=== PATIENT | female | born 1935 | race Caucasian/White ===

== ENCOUNTER 2016-03-12 10:30 | Outpatient (RCR) | payer MEDICARE, OTHER, SELFPAY ==
--- NOTE | 2016-06-26 14:41 | HP.PTEVAL_ITS ---
Patient's Visit Information KAMERON BOCANEGRA is a 81 year old F referred to Physical Therapy by Vinod Knight with a diagnosis of MID CERVICAL DISC DISPLACEMENT. Date of Evaluation: 06/26/16 Physical Therapist: Monica Duong - Visit Plan Frequency: 2-3x /Week Duration: 4-6 Weeks Plan: POSTURAL STRENGTHEING AND HEP INST - Subjective Subjective: THIS PATIENT REPORTS SHE WANTS TO COME BACK TO PT BECAUSE SHE STILL THINKS HER HEAD IS TOO FAR FORWARD. SHE STATES THAT SHE AND DR. CONNOR BOTH FEEL LIKE THERAPY REALLY HELPED IN THE PAST AND THEY BOTH WANT HER TO HAVE MORE PT. SHE REPORTS SHE HAS BEEN TOLD HER HEAD WILL NEVER GO BACK TO WHERE IT WAS BUT EX MIGHT HELP KEEP IT FROM GETTING WORSE. EX: SHE REPORTS SHE WAS ABLE TO KEEP UP WITH THE EX'S WE TAUGHT HER UNTIL ABOUT A MONTH AGO BUT NOT FOR ABOUT A MONTH NOW. THIS PATIENT PRESENTS TO PT WITH C/O DIFFICULTY TO HOLD HER HEAD UP. SHE REPORTS HER WHOLE BACK HURT HER FOR TWO DAYS LAST WEEK AFTER HAVING A SLEEP STUDY. THE PAIN RADIATED UP INTO HER NECK BUT THAT PAIN IS GONE AND IN GENERAL SHE HAS NOT BEEN HAVING ANY NECK PAIN. PATIENT DENIES EXTREMITY PAIN, NUMBNESS AND TINGLINIG. SHE REPORTS SHE HAS BEEN STRUGGLING WITH HOLDING HER HEAD UP FOR YEARS. SHE REPORTS SHE WAS RAISED WITH GOING TO CHIROPRACTORS AND SHE FINALLY REALIZED THE CHIROPRACTOR (AND DO MANIPULATIONS AND MASSAGE) WERE NOT HELPING HER. SHE IS GOING TO REFLEXOLOGY AND PATIENT REPORTS THAT HELPS WITH HER ROM BUT NOT FORWARD HEAD. SHE HAS NEVER TRIED PT AND SHE HAS NOT HAD NECK SURGERY. IMAGIN NECK X-RAY AND 2016 - AGE RELATED ARTHRITIS. PATIENT REPORTS DR. CONNOR DIDN'T MENTION ANYTHING ABOUT HER DISCS. PATIENT REPORTS SHE ATTRIBUTES A LOT OF HER NECK PROBLEMS TO USING A FORWARD HEAD POSTURE TO SEE BECAUSE OF VISION PROBLEMS. VISION PROBLEMS RECENTLY CORRECTED WITH CATARACT SURGERY. PATIENT REPORTS SHE [facility] AND SHE GOES TO EX EVERYDAY WHICH HAS HELPED HER SHOULDER A LOT. PMH: RIGHT UNREPAIRED TORN ROTATOR CUFF, HTN, HEART STENT PLACEMENT 2010. OTHER: SHE GETS THE RESULTS OF HER SLEEP STUDY SOON. SHE HAS BEEN USING A CPAP MACHINE SINCE ABOUT 2006. STOPPED DRIVING IN FEBRUARY 2016. [ End ] - Objective THIS PATIENT AMBULATES INDEP'LY INTO PT WITHOUT ANY ASSISTIVE DEVICES AND AN EXTREME FORWARD HEAD POSTURE. HER SITTING POSTURE IS POOR. SHE DOES NOT HAVE ANY TORTICOLLIS. PRESTON UE LIGHT TOUCH SENSATION IS INTACT AND SYMMETRICAL. PRESTON UE ROM AND STRENGTH IS WFL. SHE HAS FULL CERVICAL FLEXION AND PROTRACTION AND IS ACTUALLY FIXED IN A FORWARD HEAD POSTURE. SHE HAS MAJOR CERVICAL MVMT LOSS INTO ALL OTHER PLANES. ALTHOUGH SHE HAS A HISTORY OF RIGHT ROTATOR CUFF TEAR HER RIGHT UE IS NOW QUITE FUNCTIONAL. SHE IS VERY TIGHT IN HER CERVICAL AND THORACIC MUSCULATURE. SHE HAS DECREASED KNOWLEDGE OF PROPER POSTURE CONTROL. POOR POSTURAL AND CORE STRENGTH. CERVICAL MEASUREMENTS: EXT - 5.5, RIGHT ROT - 7, LEFT ROT - 7.5, RIGHT SB - 6, LEFT 5.5. [ End ] - Goals Goal 1:: IMPROVE POSTURAL STRENGTH AND ROM Goal Time Frame: 4-6 Weeks Goal 2:: INDEP HEP Goal Time Frame: 4-6 Weeks - Rehabilitation Potential Rehabilitation Potential: Fair - Anticipated Interventions Patient/Client Instruction: Educate patient on: Condition, Plan of Care, Risk Factors, Benefits of Fitness Program For the Purpose of:: To improve self management Therapeutic Exercise to Include: Strength training, Postural training, Flexibilty training, Active ROM, Scapular Strength/Stabilization For the Purpose of:: To improve ability of physical actions for home/community/ work/leisure Thank you for the opportunity to evaluate your patient. For Medicare and Medicare HMO plans, please review the plan of care and approve it. It will need to be FAXED BACK to us at [phone] for Medicare purposes. Please let me know if there are questions or concerns regarding this plan of care. Physician Signature: Date:
--- NOTE | 2016-08-02 11:15 | HP.PTDCSUM ---
HP - PT D/C Summary It has been my pleasure to treat KAMERON BOCANEGRA under orders from Vinod Knight, for the diagnosis of MID CERVICAL DISC DISPLACEMENT for a total of 10 visit(s). Discharge Date: Please see the following information for a summary of their discharge status. - Subjective Subjective: PATIENT REPORTS SHE IS DOING BETTER AND DOESN'T HAVE ANY PAIN TODAY. SHE REPORTS IT IS REALLY NICE TO COME HERE. PATEINT REPORTS SHE WENT TO HEAR A SPEAKER YESTERDAY AND SHE TURNED HER HEAD TO LISTEN FOR A PROLONGED PERIOD OF TIME. HAD TO TURN HER CHAIR. PATIENT REPORTS SHE THINKS SHE DID FINE WITH THE THERAPY BUT SHE IS REALIZING HER LIMITATIONS WILL PROBABLY CONTINUE TO GET WORSE WITH TIME. SHE IS DISCOURAGED BECAUSE DESPITE OUR BEST EFFORTS AND HERS SHE CAN'T HOLD HER HEAD UP LIKE SHE WANTS TO. - Pain Neck Pain Intensity (Out of 10): 0 - Overall Improvement % Improvement: 0 - Objective Objective/Function: INDEP HEP. PATIENT NOT PROGRESSING. PATIENT IS APPROPRIATE FOR PHYSICIAN FOLLOW UP WITH DR. SAUNDERS. UPON EXAM THERE ARE NO SIGNIFICANT CHANGES COMPARED TO HER INITIAL PT EVALUATION. - Goals Goal 1:: IMPROVE POSTURAL STRENGTH AND ROM Goal Progress: Not Progressing Goal 2:: INDEP HEP Goal Progress: Goal Met - Plan Plan: D/C DUE TO LACK OF PROGRESS - D/C Information If there are questions or concerns regarding this patient's physical therapy, please feel free to call me at [phone]. Thank you for the referral of this patient. Sincerely, Monica Duong
== END 2016-08-02 19:00 | disposition home or self-care (01) ==
LOC: PT 13:00
PROVIDERS: Family Provider Family Medicine; PCP Family Medicine; Visit Provider Orthopaedic Surgery
DX: M00-M99 Diseases of the musculoskeletal system and connective tissue (principal)
CPT/HCPCS: 97001; 97110; 97530; G8978; G8979; G8980

== ENCOUNTER → 2017-09-12 09:18 | Outpatient (CLI) | payer MEDICARE, OTHER, SELFPAY ==
[2017-09-05 09:33] LABS: BUN 30 mg/dL (7-18); Creatinine, Serum 1.32 mg/dL (0.55-1.02); EST Glomerular Filtration Rate 41 mL/min (>60); Est Glom Filt Rate - Afr Amer 50 mL/min (>60)
--- NOTE | 2017-09-12 09:22 | RDU_ITS ---
Reason For Study: Renal artery stenosis Right Renal Artery Left Renal Artery Right renal artery ostium Left renal artery ostium 338.0/55.0 521.0/83.1 RSV/EDV. PSV/EDV. Right renal artery proximal Left renal artery proximal PSV/EDV 209.0/33.0 PSV/EDV. 295.0/53.0 . Right renal artery mid 178.0/30.6 Left renal artery mid 202.0/29.3 PSV/EDV. PSV/EDV . Right renal artery distal Left renal artery distal 136.0/30.1 176.0/35.1 PSV/EDV. PSV/EDV. Right RAR 5.7. Left RAR 3.7. Right Renal Parenchyma Left Renal Parenchyma Upper Pole Medula 26.0/7.3 PSV/EDV. Left upper pole medulla 26.3/7.0 Right upper pole medulla EDR .28 . PSV/EDV . Right upper pole medulla R.I. .72 . Left upper pole medulla EDR .27 . Upper [place] Cortx 17.4/5.5 PSV/EDV. Left upper pole medulla R.I. .73 . Right upper pole cortex EDR .32 . UP Cortex 16.5/4.6 PSV/EDV. Right upper pole cortex R.I. .68 . Left upper pole cortex EDR .28 . Right lower Pole medulla 22.0/7.0 Left upper pole cortex R.I. .72 . PSV/EDV . Left lower Pole medulla 24.4/6.7 Right lower pole medulla EDR .32 . PSV/EDV . Right lower pole medulla R.I. .68 . Left lower pole medulla EDR .27 . Lower Pole Cortex 9.4/4.1 PSV/EDV. Left lower pole medulla R.I. .72 . Right lower pole cortex EDR .44 . Lower Pole Cortx 15.6/5.2 PSV/EDV. Right lower pole cortex R.I. .57 . Left lower pole cortex EDR .33 . Right Renal Hilar Left lower pole cortex R.I. .67 . Right Hilar avg 31.2/7.9 PSV/EDV. Left Renal Hilar Right hilar acceleration time 132.0 LT Hilar avg 44.9/10.1 PSV/EDV . m/sec. Left hilar acceleration time 117 Right Renal Dimensions m/sec. Right kidney size 10.1 cm . Left Renal Dimensions Right cortical dimension 1.5 cm . Left kidney size 9.0 cm . Left cortical dimension 1.5 cm . Aorta Proximal abdominal aorta 1.6 x 1.5 cm . Distal abdominal aorta 1.5 x 1.4 cm . Proximal abdominal aorta peak systolic velocity is 91.2 cm/sec . Distal abdominal aorta peak systolic velocity is 116.0 cm/sec . Interpretation Summary 1. Bilateral renal artery stenosis >60%. Ordering Physician: Axel Donis Referring Physician: Jennifer Gomez M.D. Performed By: Winnie Whipple RVT
== END ==
PROVIDERS: Family Provider Family Medicine; PCP Family Medicine; Visit Provider Surgery Vascular Surgery
DX: I70.1 Atherosclerosis of renal artery (principal); I65.23 Occlusion and stenosis of bilateral carotid arteries; R09.89 Other specified symptoms and signs involving the circulatory and respiratory systems; I25.10 Atherosclerotic heart disease of native coronary artery without angina pectoris; M79.605 Pain in left leg; M79.604 Pain in right leg; I10 Essential (primary) hypertension; E78.00 Pure hypercholesterolemia, unspecified; E07.9 Disorder of thyroid, unspecified
CPT/HCPCS: 36415; 82565; 84520; 93975

== ENCOUNTER → 2017-11-18 10:28 | Outpatient (CLI) | payer MEDICARE, OTHER, SELFPAY ==
[2017-11-18 12:25] LABS: AST(SGOT) 17 U/L (15-37); Alanine Aminotransfer ALT/SGPT 16 U/L (13-56); Albumin, Serum 3.7 g/dL (3.2-5.0); Alkaline Phosphatase 71 U/L (45-117); Bilirubin, Direct 0.11 mg/dL (0.00-0.30); Cholesterol 149 mg/dL (200); Globulin 3.7 g/dL (2.2-4.2); High Density Lipoprotein 48 mg/dL; Protein, Total 7.4 g/dL (6.4-8.2); Triglycerides 142 mg/dL; Very Low Density Lipoprotein 28 mg/dL (5-40)
== END ==
PROVIDERS: Family Provider Family Medicine; PCP Family Medicine; Visit Provider Nurse Practitioner Family
DX: E78.5 Hyperlipidemia, unspecified (principal); Z79.899 Other long term (current) drug therapy
CPT/HCPCS: 36415; 80061; 80076

== ENCOUNTER → 2018-01-27 07:36 | Outpatient (CLI) | payer MEDICARE, OTHER, SELFPAY ==
--- NOTE | 2018-01-27 07:37 | ECHOD_ITS ---
Reason For Study: Valve replacement eval Procedure This was a 2D Doppler, Color Flow transthoracic echocardiogram. Exam performed in department. Left Ventricle Normal size and thickness. The estimated ejection fraction is 75 %. Stage 2 diastolic dysfunction. No regional wall motion abnormalities noted. Right Ventricle Moderately dilated right ventricle. Normal systolic function. Atria Normal left atrium. Normal right atrium. Normal atrial septum. Mitral Valve The mitral valve is structurally normal. No prolapse or stenosis seen. Mild (1+) mitral valve insufficiency. Tricuspid Valve Normal tricuspid valve. Mild (1+) tricuspid valve insufficiency. Right ventricular systolic pressure estimated to be 41 mmHg. Mild pulmonary hypertension. Aortic Valve Trisinus/trileaflet aortic valve. Severe focal aortic valve thickening. Mild diffuse aortic valve calcification. Severe restriction of the aortic valve. Severe aortic stenosis. Peak aortic valve gradient 78 mmHg. Mean aortic valve gradient 37 mmHg. Calculated aortic valve area (continuity equation) is 0.72 cm2. Mild (1+) aortic valve insufficiency. Pulmonic Valve Normal pulmonic valve. Trivial eccentric pulmonic valve insufficiency. Great Vessels Normal aortic root. Mild atherosclerosis of the aortic arch. The inferior vena cava is dilated. Inferior vena cava collapse with sniff. Pericardium/Pleural No pericardial effusion. MMode/2D Measurements & Calculations LVIDd: 3.8 cm IVSd: 1.2 cm LVOT diam: 2.0 cm LVIDs: 1.7 cm LVPWd: 1.1 cm LVOT area: 3.2 cm2 RVDd: 4.2 cm FS: 53.5 % Ao root diam: 3.3 cm LAV(MOD-sp4): 48.6 ml LA A4 area: 18.3 cm2 ACS: 0.30 cm RA A4 area: 15.2 cm2 Time Measurements MV dec time: 0.19 sec Doppler Measurements & Calculations MV E max alondra: 104.2 cm/sec MV V2 max: 132.3 cm/sec Ao V2 max: 439.3 cm/sec MV A max alondra: 83.1 cm/sec MV max P.0 mmHg Ao max P.7 mmHg MV E/A: 1.3 MV V2 mean: 60.7 cm/sec Ao V2 mean: 276.0 cm/sec MV mean P.9 mmHg Ao mean P.6 mmHg MV V2 VTI: 36.1 cm Ao V2 VTI: 111.9 cm MVA(VTI): 2.6 cm2 NABOR(I,D): 0.83 cm2 NABOR(V,D): 0.72 cm2 AI max alondra: 364.4 cm/sec LV V1 max: 99.7 cm/sec SV(LVOT): 93.4 ml AI max P.1 mmHg LV V1 max P.0 mmHg AI dec slope: 222.5 cm/sec2 LV V1 mean P.3 mmHg AI P1/2t: 479.6 msec LV V1 mean: 71.9 cm/sec LV V1 VTI: 29.6 cm PA V2 max: 74.0 cm/sec TR max alondra: 280.0 cm/sec TR max P.5 mmHg Interpretation Summary The estimated ejection fraction is 75 %. Stage 2 diastolic dysfunction. Moderately dilated right ventricle. Mild (1+) mitral valve insufficiency. Mild (1+) tricuspid valve insufficiency. Right ventricular systolic pressure estimated to be 41 mmHg. Mild pulmonary hypertension. Mild (1+) aortic valve insufficiency. Severe aortic stenosis. Peak aortic valve gradient 78 mmHg. Mean aortic valve gradient 37 mmHg. Calculated aortic valve area (continuity equation) is 0.72 cm2. Compared to echo report dated 06/28/2015, LV function has remained the same, and aortic stenosis has gone from mild/moderate to severe. RVSP has increased from 34 to 41 mm Hg. Ordering Physician: Chao Martinez Referring Physician: Chao Martinez Performed By: Magdiel Crespo RCS
== END ==
PROVIDERS: Family Provider Family Medicine; PCP Family Medicine; Visit Provider Internal Medicine Cardiovascular Disease
DX: I25.10 Atherosclerotic heart disease of native coronary artery without angina pectoris (principal)
CPT/HCPCS: 93306

== ENCOUNTER → 2018-03-03 12:13 | Outpatient (CLI) | payer MEDICARE, OTHER, SELFPAY ==
[2018-03-03 14:28] LABS: Absolute Lymphocyte Count 1.39 X10^3/ul (0.83-4.51); Basophil# 0.05 X10^3/uL; Basophil% 1.1 % (0-1); Eosinophil# 0.41 X10^3/uL; Eosinophils% 9.3 % (0-5); Hemoglobin 10.7 g/dl (12.0-15.0); Lymphocyte # 1.39 X10^3/ul (4.0); Lymphocyte % 31.7 % (19-41); Mean Corp Hgb Conc 32.4 g/gl (32-36); Mean Corpuscular Hgb 28.5 pg (27.0-32.0); Mean Platelet Vol. 10.4 fl (6.2-12.0); Monocyte# 0.54 X10^3/uL; Monocyte% 12.3 % (0-10); Neutrophil # 1.99 X10^3/uL (2.7-7.7); Neutrophil % 45.4 % (47-70); Platelet Count 210 K/mm3 (150-450); RBC Distribution Width SD 40.5 fl (35.1-43.9); Red Blood Count 3.75 M/mm3 (4.2-5.4); White Blood Count 4.4 K/mm3 (4.4-11.0)
[2018-03-03 14:33] LABS: POSITIVE COUNT NO; POSITIVE DIFFERENTIAL NO; POSITIVE MORPHOLOGY NO
[2018-03-03 15:00] LABS: AST(SGOT) 17 U/L (15-37); Alanine Aminotransfer ALT/SGPT 22 U/L (13-56); Albumin, Serum 3.7 g/dL (3.2-5.0); Alkaline Phosphatase 55 U/L (45-117); Anion Gap 8 (5-15); BUN 38 mg/dL (7-18); BUN/Creat Ratio 23.5 RATIO (10-20); Calcium,Total 8.9 mg/dL (8.5-10.1); Chloride 105 mmol/L (98-107); Creatinine, Serum 1.62 mg/dL (0.55-1.02); EST Glomerular Filtration Rate 32 mL/min (>60); Est Glom Filt Rate - Afr Amer 39 mL/min (>60); Globulin 3.6 g/dL (2.2-4.2); Glucose 104 mg/dL (74-106); Protein, Total 7.3 g/dL (6.4-8.2); Sodium Level 141 mmol/L (136-145); T4 Total, Thyroxin 13.9 ug/dL (4.8-13.9); Thyroid Stim Hormone (TSH) 0.25 uIU/mL (0.358-3.74)
== END ==
PROVIDERS: Family Provider Family Medicine; PCP Family Medicine; Visit Provider Family Medicine
DX: E03.9 Hypothyroidism, unspecified (principal); R41.3 Other amnesia
CPT/HCPCS: 36415; 80053; 84436; 84443; 85025

== ENCOUNTER → 2018-04-14 10:51 | Outpatient (CLI) | payer MEDICARE, OTHER, SELFPAY ==
[2018-04-14 12:53] LABS: AST(SGOT) 16 U/L (15-37); Alanine Aminotransfer ALT/SGPT 20 U/L (13-56); Cholesterol 181 mg/dL (200); High Density Lipoprotein 59 mg/dL; Triglycerides 145 mg/dL; Very Low Density Lipoprotein 29 mg/dL (5-40)
== END ==
PROVIDERS: Family Provider Family Medicine; PCP Family Medicine; Visit Provider Family Medicine
DX: E78.5 Hyperlipidemia, unspecified (principal)
CPT/HCPCS: 36415; 80061; 84450; 84460

== ENCOUNTER → 2018-10-20 10:01 | Outpatient (CLI) | payer MEDICARE, OTHER, SELFPAY ==
[2018-02-16 13:25] VITALS: BMI 20.8
[2018-10-20 13:39] LABS: Anion Gap 9 (5-15); BUN 27 mg/dL (7-18); BUN/Creat Ratio 18.4 RATIO (10-20); Chloride 107 mmol/L (98-107); Creatinine, Serum 1.47 mg/dL (0.55-1.02); EST Glomerular Filtration Rate 36 mL/min (>60); Est Glom Filt Rate - Afr Amer 44 mL/min (>60); Glucose 98 mg/dL (74-106); Potassium 4.3 mmol/L (3.5-5.1); Sodium Level 142 mmol/L (136-145); T4 Total, Thyroxin 13.3 ug/dL (4.8-13.9)
== END ==
PROVIDERS: Family Provider Family Medicine; PCP Family Medicine; Referring Provider Family Medicine; Visit Provider Family Medicine
DX: I10 Essential (primary) hypertension (principal); E03.9 Hypothyroidism, unspecified
CPT/HCPCS: 36415; 80048; 84436; 84443

== ENCOUNTER → 2018-12-17 10:12 | Outpatient (CLI) | payer MEDICARE, OTHER, SELFPAY ==
[2018-02-16 13:25] VITALS: BMI 20.8
[2018-12-17 13:02] LABS: Anion Gap 6 (5-15); BUN 34 mg/dL (7-18); BUN/Creat Ratio 20.7 RATIO (10-20); Calcium,Total 8.8 mg/dL (8.5-10.1); Chloride 109 mmol/L (98-107); Creatinine, Serum 1.64 mg/dL (0.55-1.02); EST Glomerular Filtration Rate 32 mL/min (>60); Est Glom Filt Rate - Afr Amer 38 mL/min (>60); Glucose 163 mg/dL (74-106); Potassium 3.9 mmol/L (3.5-5.1); Sodium Level 141 mmol/L (136-145); T4 Total, Thyroxin 14.6 ug/dL (4.8-13.9); Thyroid Stim Hormone (TSH) 0.65 uIU/mL (0.358-3.74)
== END ==
PROVIDERS: Family Provider Family Medicine; PCP Family Medicine; Referring Provider Family Medicine; Visit Provider Family Medicine
DX: I10 Essential (primary) hypertension (principal); E03.9 Hypothyroidism, unspecified
CPT/HCPCS: 36415; 80048; 84436; 84443

== ENCOUNTER → 2019-04-12 10:20 | Outpatient (CLI) | payer MEDICARE, OTHER, SELFPAY ==
[2018-02-16 13:25] VITALS: BMI 20.8
[2019-04-12 12:39] LABS: AST(SGOT) 13 U/L (15-37); Alanine Aminotransfer ALT/SGPT 18 U/L (13-56); Anion Gap 7 (5-15); BUN 33 mg/dL (7-18); BUN/Creat Ratio 17.9 RATIO (10-20); Chloride 106 mmol/L (98-107); Cholesterol 164 mg/dL (200); Creatinine, Serum 1.84 mg/dL (0.55-1.02); EST Glomerular Filtration Rate 28 mL/min (>60); Est Glom Filt Rate - Afr Amer 34 mL/min (>60); Glucose 113 mg/dL (74-106); High Density Lipoprotein 55 mg/dL; Potassium 4.3 mmol/L (3.5-5.1); Sodium Level 138 mmol/L (136-145); Triglycerides 118 mg/dL; Very Low Density Lipoprotein 24 mg/dL (5-40)
== END ==
PROVIDERS: Family Provider Family Medicine; PCP Family Medicine; Visit Provider Family Medicine
DX: I10 Essential (primary) hypertension (principal)
CPT/HCPCS: 36415; 80048; 80061; 84450; 84460

== ENCOUNTER 2019-10-14 17:01 | Inpatient (IN) | payer MEDICARE, OTHER, SELFPAY ==
[2019-10-14] VITALS (7 sets, daily range): BP systolic 132–161; BP diastolic 34–56; PULSE 50–73; RESP 16–24; TEMP 36.3–36.6; O2SAT 91–96; BMI 21.7; BMI 21.2; BMI 21.3
--- NOTE | 2019-10-14 17:21 | EKG12_ITS ---
Test Reason : Blood Pressure : / mmHG Vent. Rate : 070 BPM Atrial Rate : 250 BPM P-R Int : 000 ms QRS Dur : 082 ms QT Int : 400 ms P-R-T Axes : 000 -11 058 degrees QTc Int : 432 ms Atrial fibrillation Abnormal ECG Confirmed by ALFREDO OWENS ([id number]), rewrite editor RICHARD NGUYEN ([id number]) on 10/18/2019 11:00:16 AM Referred By: AGAPITO Confirmed By:ALFREDO OWENS
--- NOTE | 2019-10-14 17:28 | ED.DCSUM_ITS ---
- ER Visit Summary Date of Service: 10/14/19 Chief Complaint: Shortness of breath History of Present Illness: The patient is a 84 F who presents with shortness of breath that began yesterday. Patient states it began rather suddenly last evening. Patient states that is been constant throughout the night. Patient admits to subjective fever. Patient admits to some myalgias with the fever. Patient also admits to rhinorrhea. Patient denies any sore throat or ear pain. Patient denies any cough. Patient denies any sick contacts. Patient lives in assisted living where they were not letting anybody in or out. Patient denies any chest pain. Patient denies any lower extremity edema. Physical Examination: Vital signs are stable except for mild tachypnea of 24. Patient is afebrile. Patient is in no acute distress. Oral mucosa is pink and moist. Neck is supple. Trachea is midline. There is no JVD. Heart was regular rate and rhythm. Lungs show rales in the left base. There is good respiratory effort. Abdomen is soft. Bowel sounds are normal. There is no tenderness. Cranial nerves II through XII are intact. There are no focal motor or sensory deficits noted peer extremities are intact. There is no calf tenderness or edema. Test Results: CBC showed a mild anemia with hemoglobin of 9.2 hematocrit 28.3. BUN and creatinine were elevated at 38 and 1.78 which is consistent with prior results. EKG showed atrial fibrillation with a rate of 70. There are no acute ST or T wave changes. This was unchanged compared to previous EKG dated 09/26/2016. Troponin was slightly elevated at 0.14. Influenza swab was negative. PA and lateral chest x-ray was obtained. There is atelectasis and effusion in the left base. There is also questionable infiltrate in the left base. This was interpreted by the radiologist and reviewed by myself. Emergency Department Course and Treatment: Patient was started on Levaquin. Patient's son who is the power of attorney general stated that he is agreeable to admitting the patient to the hospital for pneumonia but does not want any further testing on her heart or any further treatment on her heart. Case was discussed with the hospitalist. He will admit the patient to the hospital. Patient and family understand and are agreeable with the plan. All questions were answered. Disposition: Admit to hospital Impression: 1. Pneumonia 2. Elevated troponin This note was generated with [employer] dictation software. It may contain incorrect words, spelling, and punctuation that were not noted in review of the chart pr ior to signing ED Disposition - Plan for ED Patient: Disposition: Acute Care Hospital [facility] Diagnosis: Pneumonia, Elevated troponin Referrals: Jennifer Gomez MD [Primary Care Provider] -
--- NOTE | 2019-10-14 17:50 | RAD_ITS ---
STUDY: X-RAY CHEST REASON FOR EXAM: Female, 84 years old. SOB STARTING LAST NIGHT WITH A FEVER TECHNIQUE: PA and lateral views of the chest. COMPARISON: 05/07/2011 FINDINGS: Cardiac silhouette unremarkable. Pulmonary vascularity unremarkable. Aorta atherosclerotic. There is a small left basilar opacity. Upper abdomen unremarkable. Osseous structures intact. No pneumothorax. RAD/Chest PA and Lateral IMPRESSION: [id number] left basilar opacity likely represents atelectasis and effusion. Pneumonia should be excluded clinically. Electronically Signed: Rao Blackwood, at 18:27 EDT Tel , Service support ,
[2019-10-14 18:02] LABS: Absolute Lymphocyte Count 1.28 X10^3/uL (0.83-4.51); Absolute Neutrophil Count 3.1 X10^3/uL (2.0-7.7); Basophil# 0.05 X10^3/uL; Basophil% 0.9 % (0-1); Eosinophil# 0.14 X10^3/uL; Eosinophils% 2.6 % (0-5); Hematocrit 28.3 % (37-47); Hemoglobin 9.2 g/dL (12.0-15.0); Lymphocyte # 1.28 X10^3/ul (4.0); Lymphocyte % 23.4 % (19-41); Mean Corp Hgb Conc 32.5 g/dL (32-36); Mean Corpuscular Hgb 28.8 pg (27.0-32.0); Mean Corpuscular Volume 88.4 fL (81-99); Mean Platelet Vol. 10.1 fl (6.2-12.0); Monocyte# 0.93 X10^3/uL; NRBC Flagged by Analyzer 0 % (0-5); Neutrophil # 3.05 X10^3/uL (2.7-7.7); Neutrophil % 55.7 % (47-70); Platelet Count 196 K/mm3 (150-450); RBC Distribution Width CV 12.5 % (11.6-14.6); RBC Distribution Width SD 40.3 fl (35.1-43.9); White Blood Count 5.5 K/mm3 (4.4-11.0)
[2019-10-14 18:21] LABS: Anion Gap 7 (5-15); BUN 38 mg/dL (7-18); BUN/Creat Ratio 21.3 RATIO (10-20); Calcium,Total 8.4 mg/dL (8.5-10.1); Chloride 106 mmol/L (98-107); Creatinine, Serum 1.78 mg/dL (0.55-1.02); EST Glomerular Filtration Rate 29 mL/min (>60); Est Glom Filt Rate - Afr Amer 35 mL/min (>60); Estimated Creatinine Clearance 19.46 ml/min; Glucose 106 mg/dL (74-106); Potassium 4.4 mmol/L (3.5-5.1); Sodium Level 137 mmol/L (136-145)
[2019-10-14 18:28] LABS: Lactic Acid 0.7 mmol/L (0.4-1.9)
--- NOTE | 2019-10-14 19:41 | HP.PCM_ITS ---
Problem List (1) Pneumonia Status: Acute (2) Elevated troponin Status: Acute (3) History of coronary artery stent placement Status: Chronic Comment: [id number] LAD w/ Promus 3.0 x 15 mm (4) Hyperlipidemia Status: Chronic (5) Hypertension Status: Chronic (6) Atherosclerosis of coronary artery of [place] heart without angina pectoris Status: Chronic (7) Non-rheumatic aortic stenosis Status: Chronic (8) Left carotid artery stenosis Status: Chronic History of Present Illness Date of Admission: 10/14/19 Chief Complaint: sob The patient is a 84 year old F with a significant history of hypertension; hyperlipidemia; chronic A. fib; CAD status post stent who presents at the emergency department with shortness of breath that started a day before presentation. Her SOB started while patient was at rest. Patient lives at an assisted nursing facility where at this time of COV - pandemic no one is allowed to leave or come into the facility. Also reportedly the patient had a low-grade fever and was given Tylenol at assisted nursing facility. Further patient had a cough. Chest x-ray at emergency department showed small to moderate left basal opacity likely representing atelectasis and effusion. Past Medical History Past Medical History (Chronic Problems): Chronic Problems (Last Reviewed 10/15/19 @ 00:[address] Wilfredo Wisdom MD) History of coronary artery stent placement (Chronic 05/09/11) [id number] LAD w/ Promus 3.0 x 15 mm Hyperlipidemia (Chronic) Hypertension (Chronic) Atherosclerosis of coronary artery of [place] heart without angina pectoris (Chronic) Non-rheumatic aortic stenosis (Chronic) Left carotid artery stenosis (Chronic) Medical History: Medical History (Last Reviewed 10/15/19 @ 01:[address] Wilfredo Wisdom MD) Hyperlipidemia (Chronic) E78.5 Hypertension (Chronic) I10 Atherosclerosis of coronary artery of [place] heart without angina pectoris (Chronic) I25.10 Non-rheumatic aortic stenosis (Chronic) I35.0 Left carotid artery stenosis (Chronic) I65.22 Asystole (Resolved) I46.9 Allergies ropinirole Allergy (Verified 02/16/18 13:24) HALLUCINATIONS donepezil [From Namzaric] Adverse Reaction (Verified 02/16/18 13:24) asystole memantine [From Namzaric] Adverse Reaction (Verified 02/16/18 13:24) asystole tetracycline Adverse Reaction (Verified 02/16/18 13:24) DIZZINESS Home Medications: Ambulatory Orders Medication Instructions Recorded Levothyroxine [Synthroid] 100 mcg PO DAILY 09/26/16 pramipexole 0.125 mg tablet 0.125 mg PO QHS 12/09/17 nitroglycerin 0.4 mg sublingual 0.4 mg SUBLINGUAL PRN PRN #25 tab 01/23/18 tablet aspirin 81 mg chewable tablet 81 mg PO .QOD tab 02/02/18 simvastatin 20 mg tablet 20 mg PO QHS #90 tab 02/25/19 amlodipine 5 mg tablet 5 mg PO BID #180 tab 03/01/19 carvedilol 6.25 mg tablet 6.25 mg PO BID #180 tab 03/29/19 hydrochlorothiazide 25 mg tablet 25 mg PO DAILY #90 tab 03/29/19 losartan 100 mg tablet 100 mg PO DAILY #90 tab 03/29/19 clopidogrel 75 mg tablet 75 mg PO DAILY #90 tab 08/30/19 Doxazosin Mesylate See Rx Instructions PO DAILY 10/14/19 Surgical History: Surgical History (Last Reviewed 10/15/19 @ 00:[address] Wilfredo Wisdom MD) History of coronary artery stent placement (Chronic) Onset Date: 05/09/11 Z95.5 [id number] LAD w/ Promus 3.0 x 15 mm History of hysterectomy Z90.710 Lives: [facility] Smoking Status: Former smoker - *Family History Paternal Family History: Family History (Last Reviewed 10/15/19 @ 01:[address] Wilfredo Wisdom MD) Brother CAD (coronary artery disease) Breast cancer Sister Hypertension Mother Breast cancer Review of Systems Constitutional: Reports: Fever. Denies: Chills, Weight Change HEENT: Denies: Head Aches, Sinus Congestion, Sinus Drainage Cardiovascular: Denies: Chest Pain, Palpitations Respiratory: Reports: Cough, Shortness of Breath Gastrointestinal: Denies: Abdominal Pain, Nausea, Vomiting Genitourinary: Denies: Dysuria Musculoskeletal: Denies: Joint Pain, Joint Tenderness Skin: Denies: Rash, Wounds Neurological: Denies: Numbness, Tingling, Focal weakness Psychiatric: Denies: Anxiety, Depression, Homicidal Ideations, Suicidal Ideations Hematologic/ Lymphatic: Denies: Easy Bruising, Easy Bleeding VTE Information - Inpt Only VTE Present on Admission: No VTE Mechan Device Prophylaxis: None VTE Pharm Prophylaxis ordered?: Yes Patient Problems: Active and Suspected Problems (Last Reviewed 10/15/19 @ 00:[address] Wilfredo Wisdom MD) Pneumonia (Acute) Elevated troponin (Acute) - Physical Exam Vitals/I&O's: Vital Signs Temp Pulse Resp BP Pulse Ox 97.5 F L 50 L 22 H 135/46 H 92 10/14/19 17:04 10/14/19 19:09 10/14/19 19:09 10/14/19 19:09 10/14/19 19:09 Oxygen Delivery Method Room Air Weight: 55.7 kg Body Mass Index (BMI) 21.7 General: Alert, Oriented x3, Cooperative HEENT: Atraumatic, PERRLA, EOMI, Normocephalic Neck: Supple, No JVD, Negative Carotid Bruits Lungs: Clear to auscultation, Normal air movement Cardiovascular: Normal S2, Irregular Rate, Murmur Abdomen: Bowel Sounds Present, Soft, Non Tender Extremities: No edema, Capillary Refill Less than 3 Seconds Skin: No rashes, No breakdown Musculoskeletal: No Tenderness to Palpation of Joints or Extremities Neurological: Cranial nerves II-XII grossly intact Psych/Mental Status: Normal Affect, Appropriate Microbiology Past 72 Hours 10/14/19 17:30 Mucosa - Nose Influenza Types A,B Direct FA (HIMA) - Final Laboratory Results 10/14/19 17:45: WBC 5.5, RBC 3.20 L, Hgb 9.2 L, Hct 28.3 L, MCV 88.4, MCH 28.8, MCHC 32.5, RDW Std Deviation 40.3, RDW Coeff of Balta 12.5, Plt Count 196, MPV 10.1, Immature Gran % (Auto) 0.400, Neut % (Auto) 55.7, Lymph % (Auto) 23.4, [place] % (Auto) 17.0 H, Eos % (Auto) 2.6, Baso % (Auto) 0.9, Absolute Neuts (auto) 3.1, Absolute Lymphs (auto) 1.28, Nucleated RBC % 0 10/14/19 17:45: Sodium 137, Potassium 4.4, Chloride 106, Carbon Dioxide 24.0, Anion Gap 7, BUN 38 H, Creatinine 1.78 H, Estim Creat Clear Calc 19.46, Est GFR (MDRD) Af Amer 35 L, Est GFR (MDRD) Non-Af 29 L, BUN/Creatinine Ratio 21.3 H, Glucose 106, Calcium 8.4 L, Troponin I 0.140 H 10/14/19 17:45: Lactic Acid 0.7 Current Medications Levofloxacin (Levaquin Iv) 750 mg in 150 mls @ 100 mls/hr IV X1 ONE Stop: 10/14/19 21:04 Assessment/Plan All Active Problems (Last Reviewed 10/15/19 @ 00:[address] Wilfredo Wisdom MD) Pneumonia (Acute) Elevated troponin (Acute) Asystole (Resolved) The patient is a 84 year old F with a significant history of hypertension; hyperlipidemia; chronic A. fib; CAD status post stent who presents emergency department with shortness of breath: Cough and low-grade fever consistent with likely community-acquired pneumonia. Community-acquired pneumonia. Likely gram-positive or gram-negative. Patient with no fever at a hospital. Her white count is not elevated. This could be pure atelectasis or effusion. Out of abundance of caution patient was given Levaquin for pneumonia at the emergency department. We will continue patient on Levaquin; renally dosed. Incentive spirometer and chest physiotherap y ordered. Mucinex ordered. Influenza was negative. Will order rapid respiratory pathogen panel. Blood cultures are pending; follow. Elevated troponin On presentation patient had elevated troponin. However POA and son does not want any other treatment at this time except for pneumonia. Patient agrees with POA. Per POA patient has some mild dementia. Will not trend troponin. Will place patient on MedSurg. Patient is a DNR CCA without any intubation. However patient takes aspirin every other day. Will dose aspirin every day for now. Plavix continued losartan; carvedilol and simvastatin continued. Lipitor continued. Hypertension On presentation blood pressure was within goal in regards to her age. Amlodipine; carvedilol; hydrochlorothiazide; and losartan continued. Trend blo od pressure and adjust blood pressure medications as necessary. CKD stage IV Creatinine on presentation was 1.78. This appears elevated but may be within patient baseline; or this may be a new baseline. Repeat creatinine in a.m. DVT prophylaxis Subcutaneous heparin. Inpatient E&M: 15763 Init Hosp L3
[2019-10-14] MEDS: levoFLOXacin IV 750 MG/150 ML BAG 100 MG IV (19:55)
--- NOTE | 2019-10-14 19:58 | ED.RN ---
Chance, cert pharmacy tech, working on medication list.
--- NOTE | 2019-10-14 20:26 | ED.RN ---
med list from orders from the [facility] but not from the MAR for last times given.
[2019-10-14] MEDS: guaiFENesin 1,200 MG Tablet 1200 MG PO (22:13)
[2019-10-14] MEDS: Carvedilol 6.25 MG Tablet PO (22:13)
[2019-10-14] MEDS: Heparin Injection (Vial) 5,000 UNIT/ML VIAL 5000 UNIT SC (22:14)
[2019-10-14] MEDS: amLODIPine 5 MG Tablet PO (22:14)
[2019-10-14] MEDS: Atorvastatin Calcium 10 MG Tablet PO (22:14)
[2019-10-14] MEDS: Pramipexole Di-HCl 0.125 MG Tablet PO (22:14)
[2019-10-14] MEDS: Acetaminophen 325 MG Tablet 650 MG PO (23:26)
[2019-10-14] MEDS: Ondansetron 4 MG/2 ML Vial IV (23:45)
[2019-10-15] VITALS (7 sets, daily range): BP systolic 121–159; BP diastolic 48–70; PULSE 46–62; RESP 18–22; TEMP 36.2–36.4; O2SAT 94–98
[2019-10-15] MEDS: 0.9% Saline Lock 10 ML Syringe IV ×4 (00:25→18:50)
[2019-10-15] MEDS: proCHLORPERazine 10 MG/2 ML Vial 5 MG IV (03:18)
[2019-10-15 06:33] LABS: Absolute Lymphocyte Count 0.48 X10^3/uL (0.83-4.51); Absolute Neutrophil Count 3.1 X10^3/uL (2.0-7.7); Basophil# 0.01 X10^3/uL; Basophil% 0.2 % (0-1); Eosinophil# 0.03 X10^3/uL; Eosinophils% 0.7 % (0-5); Hematocrit 27.7 % (37-47); Hemoglobin 8.8 g/dL (12.0-15.0); Lymphocyte # 0.48 X10^3/ul (4.0); Lymphocyte % 11.6 % (19-41); Mean Corp Hgb Conc 31.8 g/dL (32-36); Mean Corpuscular Hgb 28.1 pg (27.0-32.0); Mean Corpuscular Volume 88.5 fL (81-99); Mean Platelet Vol. 10.2 fl (6.2-12.0); Monocyte# 0.53 X10^3/uL; Monocyte% 12.8 % (0-10); NRBC Flagged by Analyzer 0 % (0-5); Neutrophil # 3.07 X10^3/uL (2.7-7.7); Neutrophil % 74.5 % (47-70); POSITIVE DIFFERENTIAL YES; Platelet Count 158 K/mm3 (150-450); RBC Distribution Width CV 12.1 % (11.6-14.6); RBC Distribution Width SD 38.8 fl (35.1-43.9); Red Blood Count 3.13 M/mm3 (4.2-5.4); White Blood Count 4.1 K/mm3 (4.4-11.0)
[2019-10-15] MEDS: Levothyroxine 100 MCG Tablet PO (06:35)
[2019-10-15 06:55] LABS: Anion Gap 8 (5-15); BUN 38 mg/dL (7-18); BUN/Creat Ratio 23.2 RATIO (10-20); Calcium,Total 8.5 mg/dL (8.5-10.1); Chloride 104 mmol/L (98-107); Creatinine, Serum 1.64 mg/dL (0.55-1.02); EST Glomerular Filtration Rate 32 mL/min (>60); Est Glom Filt Rate - Afr Amer 38 mL/min (>60); Estimated Creatinine Clearance 21.12 ml/min; Glucose 105 mg/dL (74-106); Potassium 4.5 mmol/L (3.5-5.1); Sodium Level 134 mmol/L (136-145)
[2019-10-15 07:25] LABS: Differential Indicated SCAN CRITERIA MET
[2019-10-15 07:27] LABS: Hypochromasia 1+; Platelet Estimate ADEQUATE (ADEQ)
[2019-10-15 07:57] LABS: BNP,B-Type NATRIURETIC PEPTIDE 447.6 pg/mL (0-100)
--- NOTE | 2019-10-15 08:05 | ECHOD_ITS ---
Reason For Study: DYSPNEA/SOB Procedure This was a 2D Doppler, Color Flow transthoracic echocardiogram. Exam performed portable in patient room. Left Ventricle Normal size and thickness. The estimated ejection fraction is 75 %. Stage 1 diastolic dysfunction. No regional wall motion abnormalities noted. Right Ventricle Normal size and thickness. Normal systolic function. Atria Normal left atrium. Normal right atrium. Normal atrial septum. Mitral Valve The mitral valve is structurally normal. No prolapse or stenosis seen. Tricuspid Valve Normal tricuspid valve. Trivial tricuspid valve insufficiency. Right ventricular systolic pressure estimated to be 22 mmHg. Aortic Valve Trisinus/trileaflet aortic valve. Severe diffuse aortic valve calcification. Severe focal aortic valve thickening. Severe restriction of the aortic valve. Critical aortic stenosis. Peak aortic valve gradient 75 mmHg. Mean aortic valve gradient 49 mmHg. Calculated aortic valve area (continuity equation) is 0.8 cm2. Trivial aortic valve insufficiency. Pulmonic Valve Normal pulmonic valve. Great Vessels Normal aortic root. Normal arch. Normal inferior vena cava. Inferior vena cava collapse with sniff. Pericardium/Pleural Small pericardial effusion. Localized effusion. There are no echocardiographic indications of cardiac tamponade. Small left pleural effusion. MMode/2D Measurements & Calculations LVIDd: 4.0 cm IVSd: 1.1 cm LVOT diam: 2.0 cm LVIDs: 2.3 cm LVPWd: 1.0 cm LVOT area: 3.1 cm2 RVDd: 3.5 cm FS: 43.4 % Ao root diam: 3.0 cm LAV(MOD-bp): 60.0 ml LVAd ap4: 26.2 cm2 LAV(MOD-bp) Indexed: 38.7 ml/m2 EDV(MOD-sp4): 75.2 ml LAV(MOD-sp2): 54.8 ml EDV(sp4-el): 79.9 ml LAV(MOD-sp4): 53.8 ml LVAs ap4: 13.8 cm2 ESV(MOD-sp4): 26.1 ml ESV(sp4-el): 27.4 ml EF(MOD-sp4): 65.2 % EF(sp4-el): 65.8 % SV(MOD-sp4): 49.0 ml SV(sp4-el): 52.6 ml LA A4 area: 17.9 cm2 LA dimension(2D): 3.4 cm RA A4 area: 14.6 cm2 Time Measurements MV dec time: 0.24 sec Doppler Measurements & Calculations MV E max pepe: 77.4 cm/sec Lat Peak E' Pepe: 6.7 cm/sec Med Peak E' Pepe: 5.7 cm/sec MV A max pepe: 88.3 cm/sec E/E' lat: 11.6 E/E' med: 13.6 MV E/A: 0.88 Ao V2 max: 433.4 cm/sec AI max pepe: 414.5 cm/sec LV V1 max: 111.5 cm/sec Ao max P.1 mmHg AI max P.7 mmHg LV V1 max P.0 mmHg Ao V2 mean: 339.6 cm/sec LV V1 mean P.4 mmHg Ao mean P.8 mmHg AI dec slope: 304.5 cm/sec2 LV V1 mean: 88.4 cm/sec Ao V2 VTI: 121.0 cm AI P1/2t: 398.7 msec LV V1 VTI: 34.0 cm NABOR(I,D): 0.86 cm2 NABOR(V,D): 0.79 cm2 SV(LVOT): 104.4 ml PA V2 max: 96.5 cm/sec TR max pepe: 207.2 cm/sec TR max P.2 mmHg Interpretation Summary The estimated ejection fraction is 75 %. Stage 1 diastolic dysfunction. Trivial tricuspid valve insufficiency. Right ventricular systolic pressure estimated to be 22 mmHg. Critical aortic stenosis. Peak aortic valve gradient 75 mmHg. Mean aortic valve gradient 49 mmHg. Calculated aortic valve area (continuity equation) is 0.8 cm2. Trivial aortic valve insufficiency. Small pericardial effusion. There are no echocardiographic indications of cardiac tamponade. Small left pleural effusion. Compared to echo report dated 01/27/18, LV function has remained the same, aortic stenosis has remained the same, patient now has a small predominantly posterior pericardial effusion which appears to be too small for pericardiocentesis. No evidence of tamponade. Ordering Physician: Zane Salter Referring Physician: YAN SAUNDERS Performed By: Rosi Sanchez RDCS
--- NOTE | 2019-10-15 09:19 | PN_ITS ---
Patient Problems: Active and Suspected Problems (Last Updated 10/15/19 @ 09:[address] Zane Salter MD) Pneumonia (Suspected) Elevated troponin (Acute) Subjective: Chief complaint follow-up after admission for acute diastolic CHF, probable pneumonia. Patient seen and examined. No acute events overnight. She stated that her breathing is getting better although she still requiring oxygen at 3 L. Denied cough or sputum production. Denied chest pain. Denied fever or chills. She has been afebrile, blood pressure slightly elevated, pulse ox is 96% on 3 L. - Physical Exam Vitals/I&O's: Vital Signs Temp Pulse Resp BP Pulse Ox 97.4 F L 46 L 18 121/48 H 97 10/15/19 02:54 10/15/19 02:54 10/15/19 03:10 10/15/19 02:54 10/15/19 03:10 Oxygen Flow Rate (L/min) 3 Oxygen Delivery Method Nasal Cannula Weight: 119 lb 7.849 oz Body Mass Index (BMI) 21.2 Intake and Output for Last 24 Hours 10/13/19 10/14/19 10/15/19 23:59 23:59 23:59 Intake Total 150 / 300 350 / 350 Output Total 90 / 90 Balance 150 / 260 260 / 260 General: Alert, Oriented x3, Cooperative, - - Minimally short of breath. HEENT: Atraumatic, PERRLA, EOMI, Normocephalic Oral: Moist Mucosa, No Gingival or Mucosal Lesions/ Ulcerations Neck: Supple, No JVD, Negative Carotid Bruits, Trachea Midline, Thyroid Normal Size and Texture Lungs: No wheeze, Diminished, Rales, Short of Breath, - - Diminished breath sounds at the bases, faint crackles basally more on the right base. Cardiovascular: Normal S1, Normal S2, PMI Normal, Irregular Rate, Murmur Abdomen: Bowel Sounds Present, Soft, Non Tender, Non-Distended, No Hepato- splenomegaly Extremities: No clubbing, No cyanosis, No edema Skin: No rashes, No breakdown Lymphatic: No Cervical, Supraclavicular, or Inguinal Adenopathy Neurological: Cranial nerves II-XII grossly intact, Motor Exam 5/5 strength throughout Psych/Mental Status: Normal Affect, Appropriate Microbiology Past 72 Hours 10/14/19 22:25 Mucosa - Nasopharyngeal Respiratory Panel (PCR) - Final 10/14/19 17:30 Mucosa - Nose Influenza Types A,B Direct FA (HIMA) - Final Laboratory Results 10/14/19 17:45: WBC 5.5, RBC 3.20 L, Hgb 9.2 L, Hct 28.3 L, MCV 88.4, MCH 28.8, MCHC 32.5, RDW Std Deviation 40.3, RDW Coeff of Balta 12.5, Plt Count 196, MPV 10.1, Immature Gran % (Auto) 0.400, Neut % (Auto) 55.7, Lymph % (Auto) 23.4, [place] % (Auto) 17.0 H, Eos % (Auto) 2.6, Baso % (Auto) 0.9, Absolute Neuts (auto) 3.1, Absolute Lymphs (auto) 1.28, Nucleated RBC % 0 10/14/19 17:45: Sodium 137, Potassium 4.4, Chloride 106, Carbon Dioxide 24.0, Anion Gap 7, BUN 38 H, Creatinine 1.78 H, Estim Creat Clear Calc 19.46, Est GFR (MDRD) Af Amer 35 L, Est GFR (MDRD) Non-Af 29 L, BUN/Creatinine Ratio 21.3 H, Glucose 106, Calcium 8.4 L, Troponin I 0.140 H 10/14/19 17:45: Lactic Acid 0.7 10/15/19 06:18: Sodium 134 L, Potassium 4.5, Chloride 104, Carbon Dioxide 22.0, Anion Gap 8, BUN 38 H, Creatinine 1.64 H, Estim Creat Clear Calc 21.12, Est GFR (MDRD) Af Amer 38 L, Est GFR (MDRD) Non-Af 32 L, BUN/Creatinine Ratio 23.2 H, Glucose 105, Calcium 8.5 10/15/19 06:18: WBC 4.1 L, RBC 3.13 L, Hgb 8.8 L, Hct 27.7 L, MCV 88.5, MCH 28.1, MCHC 31.8 L, RDW Std Deviation 38.8, RDW Coeff of Balta 12.1, Plt Count 158, MPV 10.2, Immature Gran % (Auto) 0.200, Neut % (Auto) 74.5 H, Lymph % (Auto) 11.6 L, [place] % (Auto) 12.8 H, Eos % (Auto) 0.7, Baso % (Auto) 0.2, Absolute Neuts (auto) 3.1, Absolute Lymphs (auto) 0.48 L, Nucleated RBC % 0, Diff Path Review May foll, Platelet Estimate ADEQUATE, Hypochromasia 1+ 10/15/19 06:18: B-Natriuretic Peptide 447.6 H Clinical Impression(s) from Imaging Studies Chest X-Ray 10/14/19 17:50 IMPRESSION: [id number] left basilar opacity likely represents atelectasis and effusion. Pneumonia should be excluded clinically. Electronically Signed: Rao Vinnyariel, at 18:27 EDT Tel , Service support , Current Medications Acetaminophen (Tylenol) 650 mg PO Q6H PRN PRN PRN Reason: Pain Score 1-10/Temp > 100.7 F Last Admin: 10/14/19 23:26 Dose: 650 mg Documented by: Amlodipine Besylate (Norvasc) 5 mg PO BID [facility] Last Admin: 10/14/19 22:14 Dose: 5 mg Documented by: Aspirin (Aspirin, Baby) 81 mg PO DAILYCM [facility] Atorvastatin Calcium (Lipitor) 10 mg PO QHS [facility] Last Admin: 10/14/19 22:14 Dose: 10 mg Documented by: Carvedilol (Coreg) 6.25 mg PO BID [facility] Last Admin: 10/14/19 22:13 Dose: 6.25 mg Documented by: Clopidogrel Bisulfate (Plavix) 75 mg PO DAILY [facility] Doxazosin Mesylate (Cardura) 4 mg PO DAILY [facility] Furosemide (Lasix) 20 mg IV BID@1000,1800 [facility] Glucagon () 1 mg IM .X1 PRN PRN Reason: Hypoglycemia Guaifenesin (Mucinex) 1,200 mg PO BID [facility] Last Admin: 10/14/19 22:13 Dose: 1,200 mg Documented by: Heparin Sodium (Porcine) (Heparin Na) 5,000 unit SC Q12 [facility] Last Admin: 10/14/19 22:14 Dose: 5,000 unit Documented by: Hydrochlorothiazide (Hctz) 25 mg PO DAILY [facility] Levofloxacin (Levaquin Iv) 750 mg in 150 mls @ 100 mls/hr IV Q48@2200 [facility] Dextrose (Dextrose 10%-Water) 250 mls @ 999 mls/hr IV .Q16M PRN; Protocol PRN Reason: HYPOGLYCEMIA Sodium Chloride () 250 mls @ 15 mls/hr IV .[id number] PRN PRN Reason: Saline Flush Sodium Chloride () 250 mls @ 15 mls/hr IV .[id number] PRN PRN Reason: Additional IVPB Infusion Levothyroxine Sodium (Synthroid) 100 mcg PO DAILY@0600 [facility] Last Admin: 10/15/19 06:35 Dose: 100 mcg Documented by: Losartan Potassium (Cozaar) 100 mg PO DAILY [facility] Nitroglycerin (Nitrostat) 0.4 mg SUBLINGUAL Q5M PRN PRN Reason: CHEST PAIN Ondansetron HCl (Zofran) 4 mg IV Q6H PRN PRN PRN Reason: NAUSEA/VOMITING Pramipexole Dihydrochloride (Mirapex) 0.125 mg PO QHS [facility] Last Admin: 10/14/19 22:14 Dose: 0.125 mg Documented by: Prochlorperazine Edisylate (Compazine Iv) 5 mg IV Q6H PRN PRN PRN Reason: NAUSEA/VOMITING Last Admin: 10/15/19 03:18 Dose: 5 mg Documented by: Sodium Chloride () 10 - 40 ml IV UD PRN PRN Reason: SALINE FLUSH Last Admin: 10/15/19 03:18 Dose: 10 ml Documented by: Medical Necessity - Tobacco Use Smoking Status: Never smoker Assessment/Plan All Active Problems (Last Updated 10/15/19 @ 09:[address] Zane Salter MD) Elevated troponin (Acute) This is an 84 years old female patient presented to the emergency room because of shortness of breath which started suddenly and she was admitted as a case of pneumonia for treatment and I think this patient has acute diastolic CHF and pneumonia cannot ruled out. #1 acute diastolic CHF: In the setting of severe aortic stenosis. This is based on symptoms of shortness of breath without cough or sputum production, chest x- ray findings and elevated BNP. Patient denied any cough or sputum production, no fever or chills. No leukocytosis. Respiratory panel for viruses were negative. Nasal swab for influenza a and B were negative. EKG revealed A. fib, no acute changes. Troponin was 0.14. Patient had 2D echocardiogram on January, that revealed ejection fraction of 75%, stage II diastolic function, severe aortic stenosis and calculated aortic valve area of 0.72 cm?. Plan: 2D echocardiogram, start IV Lasix, continue HCTZ, continue Coreg and losartan, repeat CBC and BMP tomorrow morning. #2 probable community-acquired pneumonia: Chest x-ray reviewed. Patient has been afebrile, no leukocytosis, no productive cough. She is on IV Levaquin empirically. Blood cultures pending. Plan to continue empiric IV Levaquin. #3 atrial fibrillation: This seems to be new onset. EKG reviewed, revealed A. fib, rate is controlled, no acute ischemic changes. Troponin is borderline. Patient denied any chest pain. Serum electrolytes are within normal limits. Patient is on levothyroxine, TSH was normal on Nov, 2018. Plan to continue Coreg for rate control and I do not think this patient is a candidate for anticoagulation. 2D echocardiogram ordered. #4 CAD status post stents: EKG reviewed, troponin is borderline. 2D echocardiogram ordered. Continue aspirin, statins, Plavix, Coreg and losartan. #5 hypertension: Blood pressure stable, continue current medications. #6 hypothyroidism: Stable, continue levothyroxine. #7 hyperlipidemia: Continue statins. #8 severe aortic stenosis: Previous echocardiogram reviewed, 2D echocardiogram ordered this admission. #9 chronic anemia: Baseline hemoglobin has been around 9 to 10 g/dL. It is normocytic anemia. No evidence of active bleeding. Today's hemoglobin is 8.8 g/dL. Plan to monitor. #10 DVT prophylaxis: Subcu heparin. This note was generated with teextee dictation software. It may contain incorrect words, spelling, and punctuation that were not noted in checking the note before signing. Inpatient E&M: 81460 Subs Hosp L2
[2019-10-15] MEDS: Clopidogrel Bisulfate 75 MG Tablet PO (09:23)
[2019-10-15] MEDS: Aspirin 81 MG TAB.CHEW PO (09:23)
[2019-10-15] MEDS: guaiFENesin 1,200 MG Tablet 1200 MG PO ×2 (09:23→22:04)
[2019-10-15] MEDS: Doxazosin 4 MG Tablet PO (09:23)
[2019-10-15] MEDS: Pramipexole Di-HCl 0.125 MG Tablet PO ×2 (09:23→22:04)
[2019-10-15] MEDS: Losartan Potassium 100 MG Tablet PO (09:23)
[2019-10-15] MEDS: Carvedilol 6.25 MG Tablet PO ×2 (09:23→22:04)
[2019-10-15] MEDS: amLODIPine 5 MG Tablet PO ×2 (09:23→22:04)
[2019-10-15] MEDS: hydroCHLOROthiazide 25 MG Tablet PO (09:23)
[2019-10-15 09:31] LABS: Pathologist Review Reviewed
[2019-10-15] MEDS: Furosemide 20 MG/2 ML VIAL IV ×2 (09:48→18:50)
[2019-10-15] MEDS: Heparin Injection (Vial) 5,000 UNIT/ML VIAL 5000 UNIT SC ×2 (09:48→22:04)
--- NOTE | 2019-10-15 09:48 | CASEMGMT ---
SARAH BETH CRUZ called patient's room to discuss discharge planning, as patient is in precautions. Patient states that she is a resident at [facility]. Patient states that her plan is to return to [facility] at discharge. SARAH BETH CRUZ updated JASPREET Antoine regarding discharge disposition. Patient has no further needs or concerns at this time.
--- NOTE | 2019-10-15 10:31 | CASEMGMT ---
Social Work Note JASPREET updated by RN ANTHONY that pt is from [facility] and pt's plan is to return there at discharge. JASPREET placed a call to Nicolasa at [facility] and left message updating her on pt's admission to [facility]. Per physician, pt not medically cleared for discharge today. JASPREET faxed updated clinicals to [facility]. JASPREET placed green sheet and transport form on pt's chart. Plan: Return to [facility] once medically cleared Sahra Antoine CONTINUITY COORDINATOR, [employer]
[2019-10-15] MEDS: Acetaminophen 325 MG Tablet 650 MG PO ×2 (16:28→22:40)
[2019-10-15] MEDS: Atorvastatin Calcium 10 MG Tablet PO (22:04)
[2019-10-16] VITALS (8 sets, daily range): BP systolic 138–158; BP diastolic 43–51; PULSE 54–64; RESP 18–20; TEMP 36.8–36.9; O2SAT 92–97
[2019-10-16] MEDS: Levothyroxine 100 MCG Tablet PO (05:31)
[2019-10-16 07:05] LABS: Absolute Lymphocyte Count 0.64 X10^3/uL (0.83-4.51); Absolute Neutrophil Count 2.9 X10^3/uL (2.0-7.7); Basophil# 0.01 X10^3/uL; Basophil% 0.2 % (0-1); Eosinophil# 0.17 X10^3/uL; Eosinophils% 3.8 % (0-5); Hemoglobin 8.4 g/dL (12.0-15.0); Lymphocyte # 0.64 X10^3/ul (4.0); Lymphocyte % 14.3 % (19-41); Mean Corp Hgb Conc 32.3 g/dL (32-36); Mean Corpuscular Hgb 28.3 pg (27.0-32.0); Mean Corpuscular Volume 87.5 fL (81-99); Mean Platelet Vol. 10.2 fl (6.2-12.0); Monocyte% 15.6 % (0-10); NRBC Flagged by Analyzer 0 % (0-5); Neutrophil # 2.94 X10^3/uL (2.7-7.7); Neutrophil % 65.7 % (47-70); Platelet Count 179 K/mm3 (150-450); RBC Distribution Width CV 11.9 % (11.6-14.6); RBC Distribution Width SD 38.7 fl (35.1-43.9); Red Blood Count 2.97 M/mm3 (4.2-5.4); White Blood Count 4.5 K/mm3 (4.4-11.0)
[2019-10-16 07:42] LABS: Anion Gap 8 (5-15); BUN 38 mg/dL (7-18); BUN/Creat Ratio 21.1 RATIO (10-20); Calcium,Total 8.7 mg/dL (8.5-10.1); Chloride 102 mmol/L (98-107); EST Glomerular Filtration Rate 29 mL/min (>60); Est Glom Filt Rate - Afr Amer 34 mL/min (>60); Estimated Creatinine Clearance 19.25 ml/min; Glucose 95 mg/dL (74-106); Sodium Level 135 mmol/L (136-145)
--- NOTE | 2019-10-16 08:37 | PN_ITS ---
Patient Problems: Active and Suspected Problems (Last Updated 10/15/19 @ 09:[address] Zane Salter MD) Pneumonia (Suspected) Elevated troponin (Acute) Subjective: Chief complaint: Follow-up after admission for acute diastolic CHF and probable pneumonia. Patient seen and examined. No acute events overnight. Today, she is feeling better, less short of breath, remains on oxygen. Denied any other complaints. She has been afebrile, blood pressure and heart rate are stable, pulse ox is 95% on 2 L. - Physical Exam Vitals/I&O's: Vital Signs Temp Pulse Resp BP Pulse Ox 98.4 F 60 18 138/50 H 95 10/16/19 05:29 10/16/19 05:29 10/16/19 05:44 10/16/19 05:29 10/16/19 07:32 Oxygen Flow Rate (L/min) 2 Oxygen Delivery Method Nasal Cannula Weight: 119 lb 7.849 oz Body Mass Index (BMI) 21.2 Intake and Output for Last 24 Hours 10/14/19 10/15/19 10/16/19 23:59 23:59 23:59 Intake Total 150 / 300 865 / 865 100 / 100 Output Total 790 / 790 550 / 550 Balance 150 / 260 75 / 75 -450 / -450 General: Alert, Oriented x3, Cooperative, No apparent distress HEENT: Atraumatic, PERRLA, EOMI, Normocephalic Oral: Moist Mucosa, No Gingival or Mucosal Lesions/ Ulcerations Neck: Supple, No JVD, Negative Carotid Bruits, Trachea Midline, Thyroid Normal Size and Texture Lungs: No wheeze, Diminished, Rales, Rhonchi, - - Decreased breath sounds at the bases, more at the right base. Rhonchi. Cardiovascular: Regular rate, Regular Rhythm, Normal S1, Normal S2, PMI Normal, Murmur Abdomen: Bowel Sounds Present, Soft, Non Tender, Non-Distended, No Hepato- splenomegaly Extremities: No clubbing, No cyanosis, No edema Skin: No rashes, No breakdown Lymphatic: No Cervical, Supraclavicular, or Inguinal Adenopathy Neurological: Cranial nerves II-XII grossly intact, Neuro grossly intact Psych/Mental Status: Normal Affect, Appropriate, Alert and oriented to time, place, person, mood and affect Microbiology Past 72 Hours 10/14/19 22:25 Mucosa - Nasopharyngeal Respiratory Panel (PCR) - Final 10/14/19 17:30 Mucosa - Nose Influenza Types A,B Direct FA (HIMA) - Final Laboratory Results 10/15/19 06:18: Diff Path Review Reviewed 10/16/19 06:46: WBC 4.5, RBC 2.97 L, Hgb 8.4 L, Hct 26.0 L, MCV 87.5, MCH 28.3, MCHC 32.3, RDW Std Deviation 38.7, RDW Coeff of Balta 11.9, Plt Count 179, MPV 10.2, Immature Gran % (Auto) 0.400, Neut % (Auto) 65.7, Lymph % (Auto) 14.3 L, [place] % (Auto) 15.6 H, Eos % (Auto) 3.8, Baso % (Auto) 0.2, Absolute Neuts (auto) 2.9, Absolute Lymphs (auto) 0.64 L, Nucleated RBC % 0 10/16/19 06:46: Sodium 135 L, Potassium 4.0, Chloride 102, Carbon Dioxide 25.0, Anion Gap 8, BUN 38 H, Creatinine 1.80 H, Estim Creat Clear Calc 19.25, Est GFR (MDRD) Af Amer 34 L, Est GFR (MDRD) Non-Af 29 L, BUN/Creatinine Ratio 21.1 H, Glucose 95, Calcium 8.7 Current Medications Acetaminophen (Tylenol) 650 mg PO Q6H PRN PRN PRN Reason: Pain Score 1-10/Temp > 100.7 F Last Admin: 10/15/19 22:40 Dose: 650 mg Documented by: Amlodipine Besylate (Norvasc) 5 mg PO BID [facility] Last Admin: 10/15/19 22:04 Dose: 5 mg Documented by: [facility] Last Admin: 10/15/19 09:23 Dose: 81 mg Documented by: Atorvastatin Calcium (Lipitor) 10 mg PO QHS [facility] Last Admin: 10/15/19 22:04 Dose: 10 mg Documented by: Carvedilol (Coreg) 6.25 mg PO BID [facility] Last Admin: 10/15/19 22:04 Dose: 6.25 mg Documented by: Clopidogrel Bisulfate (Plavix) 75 mg PO DAILY [facility] Last Admin: 10/15/19 09:23 Dose: 75 mg Documented by: Doxazosin Mesylate (Cardura) 4 mg PO DAILY [facility] Last Admin: 10/15/19 09:23 Dose: 4 mg Documented by: Furosemide (Lasix) 20 mg IV BID@1000,1800 [facility] Last Admin: 10/15/19 18:50 Dose: 20 mg Documented by: Glucagon () 1 mg IM .X1 PRN PRN Reason: Hypoglycemia Guaifenesin (Mucinex) 1,200 mg PO BID [facility] Last Admin: 10/15/19 22:04 Dose: 1,200 mg Documented by: Heparin Sodium (Porcine) (Heparin Na) 5,000 unit SC Q12 [facility] Last Admin: 10/15/19 22:04 Dose: 5,000 unit Documented by: Hydrochlorothiazide (Hctz) 25 mg PO DAILY [facility] Last Admin: 10/15/19 09:23 Dose: 25 mg Documented by: Levofloxacin (Levaquin Iv) 750 mg in 150 mls @ 100 mls/hr IV Q48@2200 [facility] Dextrose (Dextrose 10%-Water) 250 mls @ 999 mls/hr IV .Q16M PRN; Protocol PRN Reason: HYPOGLYCEMIA Sodium Chloride () 250 mls @ 15 mls/hr IV .[id number] PRN PRN Reason: Saline Flush Sodium Chloride () 250 mls @ 15 mls/hr IV .[id number] PRN PRN Reason: Additional IVPB Infusion Levothyroxine Sodium (Synthroid) 100 mcg PO DAILY@0600 [facility] Last Admin: 10/16/19 05:31 Dose: 100 mcg Documented by: Losartan Potassium (Cozaar) 100 mg PO DAILY [facility] Last Admin: 10/15/19 09:23 Dose: 100 mg Documented by: Nitroglycerin (Nitrostat) 0.4 mg SUBLINGUAL Q5M PRN PRN Reason: CHEST PAIN Ondansetron HCl (Zofran) 4 mg IV Q6H PRN PRN PRN Reason: NAUSEA/VOMITING Pramipexole Dihydrochloride (Mirapex) 0.125 mg PO QHS [facility] Last Admin: 10/15/19 22:04 Dose: 0.125 mg Documented by: Prochlorperazine Edisylate (Compazine Iv) 5 mg IV Q6H PRN PRN PRN Reason: NAUSEA/VOMITING Last Admin: 10/15/19 03:18 Dose: 5 mg Documented by: Sodium Chloride () 10 - 40 ml IV UD PRN PRN Reason: SALINE FLUSH Last Admin: 10/15/19 18:50 Dose: 10 ml Documented by: Medical Necessity - Tobacco Use Smoking Status: Never smoker Assessment/Plan All Active Problems (Last Updated 10/15/19 @ 09:[address] Zane Salter MD) Elevated troponin (Acute) This is an 84 years old female patient presented to the emergency room because of shortness of breath which started suddenly and she was admitted as a case of pneumonia for treatment and I think this patient has acute diastolic CHF and pneumonia cannot ruled out. #1 acute diastolic CHF: She is on IV Lasix, HCTZ, Coreg and losartan. In the setting of severe aortic stenosis. She has a good urine output, kidney function is stable. Symptoms started to improve. 2D echocardiogram revealed ejection fraction of 75%, stage I diastolic dysfunction, critical aortic stenosis with aortic valve surface area of 0.8 cm?. Reportedly and according to the patient, patient does not want any aggressive treatment or surgeries. I informed the patient about the critical aortic stenosis and she agreed that surgery is not a good option for her because of it is a high risk surgery. I will discuss with her son as well and make him aware. Plan to continue same treatment with IV diuresis, wean off oxygen, ambulate. #2 probable community-acquired pneumonia: She is on IV Levaquin. She has been afebrile, no leukocytosis. Chest x-ray reviewed. Respiratory panel for viruses were negative. Nasal swab for influenza a and B were negative. Blood cultures pending. Plan to continue same treatment. #3 atrial fibrillation: This seems to be new onset. Rate is controlled. Serum electrolytes are within normal limits. Patient is on levothyroxine, TSH was normal on Nov, 2018. Continue Coreg for rate control and I do not think this patient is a candidate for anticoagulation. 2D echocardiogram reviewed as above #4 CAD status post stents: EKG reviewed, troponin is borderline. 2D echocardiogram reviewed as above. Continue aspirin, statins, Plavix, Coreg and losartan. #5 hypertension: Blood pressure stable, continue current medications. #6 hypothyroidism: Stable, continue levothyroxine. #7 hyperlipidemia: Continue statins. #8 severe aortic stenosis: Previous echocardiogram reviewed, 2D echocardiogram reviewed as above. #9 chronic anemia: Baseline hemoglobin has been around 9 to 10 g/dL. It is normocytic anemia. No evidence of active bleeding. Today's hemoglobin is 8.4 g/dL. Plan to monitor. #10 DVT prophylaxis: Subcu heparin. This note was generated with [employer] dictation software. It may contain incorrect words, spelling, and punctuation that were not noted in checking the note before signing. Inpatient E&M: 93658 Subs Hosp L2
[2019-10-16] MEDS: Heparin Injection (Vial) 5,000 UNIT/ML VIAL 5000 UNIT SC ×2 (08:48→22:02)
[2019-10-16] MEDS: Clopidogrel Bisulfate 75 MG Tablet PO (08:48)
[2019-10-16] MEDS: Doxazosin 4 MG Tablet PO (08:49)
[2019-10-16] MEDS: Carvedilol 6.25 MG Tablet PO ×2 (08:49→22:02)
[2019-10-16] MEDS: Aspirin 81 MG TAB.CHEW PO (08:49)
[2019-10-16] MEDS: guaiFENesin 1,200 MG Tablet 1200 MG PO ×2 (08:49→22:02)
[2019-10-16] MEDS: Losartan Potassium 100 MG Tablet PO (08:49)
[2019-10-16] MEDS: amLODIPine 5 MG Tablet PO ×2 (08:49→22:03)
[2019-10-16] MEDS: hydroCHLOROthiazide 25 MG Tablet PO (08:49)
[2019-10-16] MEDS: Furosemide 20 MG/2 ML VIAL IV ×2 (08:50→18:58)
[2019-10-16] MEDS: 0.9% Saline Lock 10 ML Syringe IV ×3 (08:51→22:02)
[2019-10-16] MEDS: Acetaminophen 325 MG Tablet 650 MG PO (16:59)
[2019-10-16] MEDS: Pramipexole Di-HCl 0.125 MG Tablet PO (22:02)
[2019-10-16] MEDS: levoFLOXacin IV 750 MG/150 ML BAG 100 MG IV (22:02)
[2019-10-16] MEDS: Atorvastatin Calcium 10 MG Tablet PO (22:03)
[2019-10-17] MEDS: Acetaminophen 325 MG Tablet 650 MG PO (00:06)
[2019-10-17 04:30] VITALS: BP 133/54; PULSE 61; RESP 18; TEMP 36.4; O2SAT 96
[2019-10-17] MEDS: Levothyroxine 100 MCG Tablet PO (04:44)
[2019-10-17 06:41] LABS: Hematocrit 25.1 % (37-47); Hemoglobin 8.3 g/dL (12.0-15.0)
[2019-10-17 06:55] VITALS: O2SAT 91
[2019-10-17 07:02] LABS: Anion Gap 9 (5-15); BUN 40 mg/dL (7-18); BUN/Creat Ratio 20.3 RATIO (10-20); Calcium,Total 8.6 mg/dL (8.5-10.1); Chloride 100 mmol/L (98-107); Creatinine, Serum 1.97 mg/dL (0.55-1.02); EST Glomerular Filtration Rate 26 mL/min (>60); Est Glom Filt Rate - Afr Amer 31 mL/min (>60); Estimated Creatinine Clearance 17.58 ml/min; Glucose 111 mg/dL (74-106); Potassium 3.5 mmol/L (3.5-5.1); Sodium Level 133 mmol/L (136-145)
[2019-10-17] MEDS: 0.9% Saline Lock 10 ML Syringe IV (07:04)
[2019-10-17] MEDS: Ondansetron 4 MG/2 ML Vial IV (07:04)
--- NOTE | 2019-10-17 08:17 | DCINST_ITS ---
- Discharge Diagnoses Current Active Problems: Current Active and Chronic Problems (Last Updated 10/15/19 @ 09:[address] Zane Salter MD) Elevated troponin (Acute) You will use the following diet at home:: Cardiac, Fluid restricted (specify 2000 mls, 1500 mls) - 1500 cc daily Your food should be the consistency of: Regular Discharge Activity: Return to Normal Activity Weight Bearing Status: Weight bearing as tolerated Call your doctor if you observe: Fever of 101 or Higher, Shortness of breath, Dizziness, Fainting spells, Chest pain, Increased palpitations (irregular heartbeat), Uncontrolled pain Allergies/Adverse Reactions: Allergies ropinirole Allergy (Verified 02/16/18 13:24) HALLUCINATIONS donepezil [From Namzaric] Adverse Reaction (Verified 02/16/18 13:24) asystole memantine [From Namzaric] Adverse Reaction (Verified 02/16/18 13:24) asystole tetracycline Adverse Reaction (Verified 02/16/18 13:24) DIZZINESS Medications to take at Discharge Levothyroxine [Synthroid] 100 mcg PO DAILY 09/26/16 pramipexole 0.125 mg tablet 0.125 mg PO QHS 12/09/17 nitroglycerin 0.4 mg sublingual tablet 0.4 mg SUBLINGUAL PRN PRN #25 tab 01/23/18 aspirin 81 mg chewable tablet 81 mg PO .QOD tab 02/02/18 simvastatin 20 mg tablet 20 mg PO QHS #90 tab 02/25/19 amlodipine 5 mg tablet 5 mg PO BID #180 tab 03/01/19 carvedilol 6.25 mg tablet 6.25 mg PO BID #180 tab 03/29/19 losartan 100 mg tablet 100 mg PO DAILY #90 tab 03/29/19 clopidogrel 75 mg tablet 75 mg PO DAILY #90 tab 08/30/19 Doxazosin Mesylate See Rx Instructions PO DAILY 10/14/19 Furosemide [Lasix] 40 mg PO DAILY #30 tab 10/17/19 Hydrochlorothiazide [Hctz] 12.5 mg PO DAILY #30 tab 10/17/19 Levofloxacin [Levaquin] 750 mg PO QODAY #3 tab 10/17/19 The following prescriptions were given: Hydrochlorothiazide [Hctz] 12.5 mg PO DAILY #30 tab Prescription Printed Furosemide [Lasix] 40 mg PO DAILY #30 tab Prescription Printed Levofloxacin [Levaquin] 750 mg PO QODAY #3 tab Prescription Printed Primary Care Physician: Jennifer Gomez MD [Primary Care Provider] - Please follow up with your Primary Care Physician in: 1 WEEK. Test Results: Test results from this visit will be discussed in further detail at your follow- up appointment, if applicable.
[2019-10-17 10:30] VITALS: BP 130/72; PULSE 89; RESP 18; TEMP 36.6; O2SAT 92
[2019-10-17] MEDS: amLODIPine 5 MG Tablet PO (10:52)
[2019-10-17] MEDS: Clopidogrel Bisulfate 75 MG Tablet PO (10:52)
[2019-10-17] MEDS: Aspirin 81 MG TAB.CHEW PO (10:52)
[2019-10-17] MEDS: hydroCHLOROthiazide 25 MG Tablet PO (10:52)
[2019-10-17] MEDS: guaiFENesin 1,200 MG Tablet 1200 MG PO (10:52)
[2019-10-17] MEDS: Losartan Potassium 100 MG Tablet PO (10:53)
[2019-10-17] MEDS: Furosemide 20 MG/2 ML VIAL IV (10:53)
[2019-10-17] MEDS: Doxazosin 4 MG Tablet PO (10:53)
[2019-10-17] MEDS: Heparin Injection (Vial) 5,000 UNIT/ML VIAL 5000 UNIT SC (10:53)
[2019-10-17] MEDS: Carvedilol 6.25 MG Tablet PO (10:53)
--- NOTE | 2019-10-17 11:50 | NURSING ---
Hans TRAN called and informed of Discharge. Will come get pt at 1400.
--- NOTE | 2019-10-17 12:31 | PCM.DC.SUM ---
Discharge Date and Diagnosis Date of Admission: 10/14/19 Date of Discharge: 10/17/19 - Primary Discharge Diagnosis Active and Suspected Problems (Last Updated 10/15/19 @ 09:[address] Zane Salter MD) #1 acute diastolic congestive heart failure. #2 probable community-acquired pneumonia. #3 critical aortic stenosis. #4 new onset paroxysmal atrial fibrillation. - Secondary Discharge Diagnosis Chronic Problems (Last Updated 10/15/19 @ 09:[address] Zane Salter MD) History of coronary artery stent placement (Chronic 05/09/11) [id number]-[id number] LAD w/ Promus 3.0 x 15 mm Hyperlipidemia (Chronic) Hypertension (Chronic) Atherosclerosis of coronary artery of [place] heart without angina pectoris (Chronic) Non-rheumatic aortic stenosis (Chronic) Left carotid artery stenosis (Chronic) Hospital Course and Treatment Imaging Results: Clinical Impression(s) from Imaging Studies Chest X-Ray 10/14/19 17:50 IMPRESSION: [id number] left basilar opacity likely represents atelectasis and effusion. Pneumonia should be excluded clinically. Electronically Signed: Rao Blackwood, at 18:27 EDT Tel , Service support , Procedures: 2-D Echocardiogram, EKG Summary of Care Provided: Patient seen and examined on the day of discharge and appeared to be stable to be discharged to assisted living. Last night, she had episode of nausea but this morning, she mentioned that she is feeling better. Denied shortness of breath. She has been off oxygen. Her vital signs are stable. This is an 84 years old female patient presented to the emergency room because of shortness of breath which started suddenly and she was found to have acute diastolic CHF, critical aortic stenosis and probable pneumonia as well as new onset paroxysmal atrial fibrillation. #1 acute diastolic CHF: Treated with IV Lasix, HCTZ, Coreg and losartan. 2D echocardiogram revealed ejection fraction of 75%, stage I diastolic dysfunction, critical aortic stenosis with aortic valve surface area of 0.8 cm?. Her troponin was borderline elevated. EKG revealed no acute, changes. On admission and after discussion with the patient herself and her son, both they do not want any aggressive treatment even serial cardiac enzymes. With IV diuresis, patient symptoms improved, kidney function remained at her baseline and she does have a history of chronic kidney disease. She was able to come off oxygen. Patient discharged to assisted living in a stable condition, discharged on Lasix 40 mg p.o. daily, HCTZ 12.5 mg p.o. daily, remained on Coreg, aspirin and losartan. #2 probable community-acquired pneumonia: Treated with IV Levaquin. She remained afebrile and she has no leukocytosis. Respiratory panel for viruses were negative. Nasal swab for influenza a and B were negative. Blood cultures showed no growth in 48 hours. Patient discharged on Levaquin 750 mg q. other day and she was given 3 doses to complete total of 7 days of treatment. #3 New onset paroxysmal atrial fibrillation: Heart rate were under control. Serum electrolytes are within normal limits. Patient is on levothyroxine, TSH was normal on Nov, 2018. She was not a candidate for anticoagulation. She was maintained on Coreg for rate control. #4 CAD status post stents: Continued on aspirin, statins, Plavix, Coreg and losartan. #5 hypertension: Blood pressure stable, continued on Coreg, Lasix, HCTZ and losartan. #6 hypothyroidism: Stable, continued on levothyroxine. #7 hyperlipidemia: Continued on statins. #8 Critical aortic stenosis: Patient and her son declined any type of further testing or surgery. Patient discharged to assisted living in a stable condition, discharged on Levaquin 750 mg p.o. q. other day for 3 more doses to complete total of 7 days of treatment, discharged on Lasix 40 mg p.o. daily, HCTZ 12.5 mg p.o. daily, continued on her other previous home medications, recommended from with PCP in 1 week. This note was generated with [employer] software. It may contain incorrect words, spelling, and punctuation that were not noted in checking the note before signing. - Physical Exam Vitals/I&O's: Vital Signs Temp Pulse Resp BP Pulse Ox 97.8 F 89 18 130/72 H 92 10/17/19 10:30 10/17/19 10:30 10/17/19 10:30 10/17/19 10:30 10/17/19 10:30 Oxygen Flow Rate (L/min) 2 Oxygen Delivery Method Room Air Weight: 119 lb 7.849 oz Body Mass Index (BMI) 21.2 Intake and Output for Last 24 Hours 10/15/19 10/16/19 10/17/19 23:59 23:59 23:59 Intake Total 865 / 865 490 / 690 240 / 240 Output Total 790 / 790 1250 / 1250 Balance 75 / 75 -760 / -560 240 / 240 General: Alert, Cooperative, No apparent distress HEENT: Atraumatic, PERRLA, EOMI, Normocephalic Oral: Moist Mucosa, No Gingival or Mucosal Lesions/ Ulcerations Neck: Supple, No JVD, Negative Carotid Bruits, Trachea Midline, Thyroid Normal Size and Texture Lungs: Clear to auscultation, No rhonchi, No wheeze, No rales, Diminished, - - Decreased breath sounds at the bases, otherwise clear. Cardiovascular: Regular rate, Regular Rhythm, Normal S1, Normal S2, PMI Normal, Murmur Abdomen: Bowel Sounds Present, Soft, Non Tender, Non-Distended, No Hepato-splenomegaly Extremities: No clubbing, No cyanosis, No edema Skin: No rashes, No breakdown Lymphatic: No Cervical, Supraclavicular, or Inguinal Adenopathy Neurological: Cranial nerves II-XII grossly intact, Neuro grossly intact Psych/Mental Status: Normal Affect, Appropriate Microbiology Past 72 Hours 10/14/19 17:40 Blood Culture (Wb) #2 - Anticubital Left Blood Culture - Preliminary No growth in 48 hours. 10/14/19 17:45 Blood Culture (Wb) - Anticubital Right Blood Culture - Preliminary No growth in 48 hours. 10/14/19 22:25 Mucosa - Nasopharyngeal Respiratory Panel (PCR) - Final 10/14/19 17:30 Mucosa - Nose Influenza Types A,B Direct FA (HIMA) - Final Laboratory Results 10/17/19 05:58: Hgb 8.3 L, Hct 25.1 L 10/17/19 05:58: Sodium 133 L, Potassium 3.5, Chloride 100, Carbon Dioxide 24.0, Anion Gap 9, BUN 40 H, Creatinine 1.97 H, Estim Creat Clear Calc 17.58, Est GFR (MDRD) Af Amer 31 L, Est GFR (MDRD) Non-Af 26 L, BUN/Creatinine Ratio 20.3 H, Glucose 111 H, Calcium 8.6 Current Medications Acetaminophen (Tylenol) 650 mg PO Q6H PRN PRN PRN Reason: Pain Score 1-10/Temp > 100.7 F Last Admin: 10/17/19 00:06 Dose: 650 mg Documented by: Amlodipine Besylate (Norvasc) 5 mg PO BID [facility] Last Admin: 10/17/19 10:52 Dose: 5 mg Documented by: Aspirin (Aspirin, Baby) 81 mg PO DAILYCM [facility] Last Admin: 10/17/19 10:52 Dose: 81 mg Documented by: Atorvastatin Calcium (Lipitor) 10 mg PO QHS [facility] Last Admin: 10/16/19 22:03 Dose: 10 mg Documented by: Carvedilol (Coreg) 6.25 mg PO BID [facility] Last Admin: 10/17/19 10:53 Dose: 6.25 mg Documented by: Clopidogrel Bisulfate (Plavix) 75 mg PO DAILY [facility] Last Admin: 10/17/19 10:52 Dose: 75 mg Documented by: Doxazosin Mesylate (Cardura) 4 mg PO DAILY [facility] Last Admin: 10/17/19 10:53 Dose: 4 mg Documented by: Furosemide (Lasix) 20 mg IV BID@1000,1800 [facility] Last Admin: 10/17/19 10:53 Dose: 20 mg Documented by: Glucagon () 1 mg IM .X1 PRN PRN Reason: Hypoglycemia Guaifenesin (Mucinex) 1,200 mg PO BID [facility] Last Admin: 10/17/19 10:52 Dose: 1,200 mg Documented by: Heparin Sodium (Porcine) (Heparin Na) 5,000 unit SC Q12 [facility] Last Admin: 10/17/19 10:53 Dose: 5,000 unit Documented by: Hydrochlorothiazide (Hctz) 25 mg PO DAILY [facility] Last Admin: 10/17/19 10:52 Dose: 25 mg Documented by: Levofloxacin (Levaquin Iv) 750 mg in 150 mls @ 100 mls/hr IV Q48@2200 [facility] Last Infusion: 10/16/19 23:32 Dose: Infused Documented by: Dextrose (Dextrose 10%-Water) 250 mls @ 999 mls/hr IV .Q16M PRN; Protocol PRN Reason: HYPOGLYCEMIA Sodium Chloride () 250 mls @ 15 mls/hr IV .[id number] PRN PRN Reason: Saline Flush Sodium Chloride () 250 mls @ 15 mls/hr IV .[id number] PRN PRN Reason: Additional IVPB Infusion Levothyroxine Sodium (Synthroid) 100 mcg PO DAILY@0600 [facility] Last Admin: 10/17/19 04:44 Dose: 100 mcg Documented by: Losartan Potassium (Cozaar) 100 mg PO DAILY [facility] Last Admin: 10/17/19 10:53 Dose: 100 mg Documented by: Nitroglycerin (Nitrostat) 0.4 mg SUBLINGUAL Q5M PRN PRN Reason: CHEST PAIN Ondansetron HCl (Zofran) 4 mg IV Q6H PRN PRN PRN Reason: NAUSEA/VOMITING Last Admin: 10/17/19 07:04 Dose: 4 mg Documented by: Pramipexole Dihydrochloride (Mirapex) 0.125 mg PO QHS [facility] Last Admin: 10/16/19 22:02 Dose: 0.125 mg Documented by: Prochlorperazine Edisylate (Compazine Iv) 5 mg IV Q6H PRN PRN PRN Reason: NAUSEA/VOMITING Last Admin: 10/15/19 03:18 Dose: 5 mg Documented by: Sodium Chloride () 10 - 40 ml IV UD PRN PRN Reason: SALINE FLUSH Last Admin: 10/17/19 07:04 Dose: 10 ml Documented by: Discharge Activity: Return to Normal Activity Weight Bearing Status: Weight bearing as tolerated Call your doctor if you observe: Fever of 101 or Higher, Shortness of breath, Dizziness, Fainting spells, Chest pain, Increased palpitations (irregular heartbeat), Uncontrolled pain Home Medications: Medications to take at Discharge Levothyroxine [Synthroid] 100 mcg PO DAILY 09/26/16 pramipexole 0.125 mg tablet 0.125 mg PO QHS 12/09/17 nitroglycerin 0.4 mg sublingual tablet 0.4 mg SUBLINGUAL PRN PRN #25 tab 01/23/18 aspirin 81 mg chewable tablet 81 mg PO .QOD tab 02/02/18 simvastatin 20 mg tablet 20 mg PO QHS #90 tab 02/25/19 amlodipine 5 mg tablet 5 mg PO BID #180 tab 03/01/19 carvedilol 6.25 mg tablet 6.25 mg PO BID #180 tab 03/29/19 losartan 100 mg tablet 100 mg PO DAILY #90 tab 09/02/19 clopidogrel 75 mg tablet 75 mg PO DAILY #90 tab 08/30/19 Doxazosin Mesylate See Rx Instructions PO DAILY 10/14/19 Furosemide [Lasix] 40 mg PO DAILY #30 tab 10/17/19 Hydrochlorothiazide [Hctz] 12.5 mg PO DAILY #30 tab 10/17/19 Levofloxacin [Levaquin] 750 mg PO QODAY #3 tab 10/17/19 Following Prescrptions Were Given to Patient: Hydrochlorothiazide [Hctz] 12.5 mg PO DAILY #30 tab Prescription Printed Furosemide [Lasix] 40 mg PO DAILY #30 tab Prescription Printed Levofloxacin [Levaquin] 750 mg PO QODAY #3 tab Prescription Printed Primary Care Physician: Jennifer Gomez MD [Primary Care Provider] - Please follow up with your Primary Care Physician in: 1 WEEK. Disposition: Home Minutes spent on discharge:: 33 Patient Condition:: Stable Medical Necessity - Tobacco Use Smoking Status: Never smoker Meaningful Use Info Meaningful Use Diagnoses (Choose all that apply): CHF - CHF THELMA/ARB ordered at discharge?: Yes Documented LVEF (%): 75 Inpatient E&M: [id number] Disch Hosp
[2019-10-17 13:58] VITALS: O2SAT 92; O2SAT 93
[2019-10-17 13:59] VITALS: BP 115/46; PULSE 56; RESP 20; TEMP 37; O2SAT 92
--- NOTE | 2019-10-17 14:00 | NURSING ---
Pt refused Nausea medication. no nausea anymore.
== END 2019-10-17 14:18 | disposition home or self-care (01) | DRG 291 ==
LOC: ED 20:08 → MS3 21:11
PROVIDERS: Admitting Provider Hospitalist; Emergency Provider Emergency Medicine; PCP Family Medicine; Visit Provider Hospitalist
DX: I13.0 Hypertensive heart and chronic kidney disease with heart failure and stage 1 through stage 4 chronic kidney disease, or unspecified chronic kidney disease (principal); J18.9 Pneumonia, unspecified organism; I50.31 Acute diastolic (congestive) heart failure; N18.4 Chronic kidney disease, stage 4 (severe); I35.0 Nonrheumatic aortic (valve) stenosis; I48.0 Paroxysmal atrial fibrillation; Z95.5 Presence of coronary angioplasty implant and graft; E78.5 Hyperlipidemia, unspecified; I25.10 Atherosclerotic heart disease of native coronary artery without angina pectoris; E03.9 Hypothyroidism, unspecified; Z66 Do not resuscitate; Z79.82 Long term (current) use of aspirin; D64.9 Anemia, unspecified
CPT/HCPCS: 36415; 71046; 80048; 83605; 83880; 84484; 85014; 85018; 85025; 87040; 87633; 87804; 93005; 93306; 94667; 94668; 97110; 97116; 97162; 97166; 97530; 99251; 99285; J7040; A4216; G0463; J1940; J2405